=== PATIENT | male | born 1990 | race Caucasian/White ===

== ENCOUNTER 2020-01-11 00:53 | Emergency (ER) | payer OTHER ==
[~2020-01-11] VITALS: Ht 182.9 cm; Wt 99.8 kg
[2020-01-11 02:18] VITALS: BP 123/76
== END 2020-01-11 02:18 | disposition home or self-care (01) ==
LOC: M.ERS 00:53
DX: S51.812A Laceration without foreign body of left forearm, initial encounter (principal); Z88.0 Allergy status to penicillin; W26.8XXA Contact with other sharp object(s), not elsewhere classified, initial encounter; Y93.89 Activity, other specified; Y92.89 Other specified places as the place of occurrence of the external cause; Y99.8 Other external cause status